=== PATIENT | female | born 2000 | race African-American/Black ===

== ENCOUNTER 2023-08-31 10:47 | Inpatient (IN) ==
[2023-08-31] MEDS: LR 1,000 ML IV 1,000 ML IV SCH (11:00)
[2023-08-31] MEDS ORDERED: ZOFRAN INJ 4 MG VIAL IVP PRN (11:26)
[2023-08-31] MEDS ORDERED: NUBAIN INJ 20 MG AMP IVP PRN (11:26)
[2023-08-31] MEDS ORDERED: OXYTOCIN 20 UNIT/1,000 ML-NS 20 UNIT/1,000 ML PLAST..BAG IV PRN (11:26)
[2023-08-31] MEDS ORDERED: PITOCIN IVP ONE (11:26)
[2023-08-31] MEDS ORDERED: REGLAN INJ 10 MG VIAL IVP PRN (11:26)
[2023-08-31] MEDS: LR 1,000 ML IV 1,000 ML IV ONE ×3 (11:30→17:39)
[2023-08-31 12:00] LABS: BILIRUBIN,URINE NEGATIVE (NEGATIVE); BLOOD/HEMOGLOBIN,URINE 5+ (NEGATIVE); GLUCOSE, URINE NEGATIVE (NEGATIVE); KETONES,URINE NEGATIVE (NEGATIVE); LEUKOCYTE ESTERASE ,URINE 3+ (NEGATIVE); NITRITES,URINE NEGATIVE (NEGATIVE); PROTEIN,URINE 3+ (NEGATIVE); UROBILINOGEN,URINE 1+ (NORMAL)
[2023-08-31 12:02] LABS: APPEARANCE,URINE CLOUDY (CLEAR); COLOR,URINE BLOODY (YELLOW)
[2023-08-31 12:07] LABS: RBC,URINE TNTC /HPF (0-3); SQUAMOUS EPITHELIAL CELL,UR RARE /HPF (NEGATIVE)
[2023-08-31 12:08] LABS: BACTERIA,URINE TRACE /HPF (NEGATIVE)
[2023-08-31 12:16] LABS: BLOOD UREA NITROGEN 4 mg/dL (7-18); CALCIUM 8.6 mg/dL (8.5-10.1); CARBON DIOXIDE 23.2 mmol/L (21-32); CHLORIDE 103 mmol/L (98-107); CREATININE 0.57 mg/dL (0.55-1.02); GLUCOSE 85 mg/dL (65-99); POTASSIUM 3.5 mmol/L (3.5-5.1); SODIUM 137 mmol/L (136-145); eGFR NON BLACK RACES > 60 (>60)
[2023-08-31] MEDS: EPHEDRINE SULFATE INJ ONE (12:20)
[2023-08-31 12:24] LABS: LYMPHOCYTES # (AUTO) 2.5 X10^3/uL (1.3-2.9); RED CELL DISTRIBUTION WIDTH 17.7 % (11.6-16.5)
[2023-08-31 12:30] LABS: BASOPHILS # (AUTO) 0.1 X10^3/uL (0.0-0.1); BASOPHILS % (AUTO) 0.6 % (0.2-1.0); EOSINOPHILS # (AUTO) 0.3 x10^3/uL (0.0-0.2); HEMATOCRIT 30.6 % (36.0-47.0); HEMOGLOBIN 9.3 g/dL (12.0-16.0); LYMPHOCYTES % (AUTO) 19.4 % (21.0-51.0); MEAN CORPUSCULAR HEMOGLOBIN 19.9 pg (27.0-34.0); MEAN CORPUSCULAR HGB CONC 30.4 g/dL (33.0-35.0); MEAN CORPUSCULAR VOLUME 65.6 fL (80.0-100.0); MEAN PLATELET VOLUME 8.1 fL (7.4-11.0); MONOCYTES # (AUTO) 1.1 x10^3/uL (0.3-0.8); MONOCYTES % (AUTO) 8.5 % (0.0-13.0); NEUTROPHILS # (AUTO) 8.9 x10^3/uL (2.2-4.8); NEUTROPHILS % (AUTO) 69.5 % (42.0-75.0); PLATELET COUNT 308 X10^3/uL (150.0-450.0); RED BLOOD COUNT 4.67 X10^6/uL (3.5-5.4); WHITE BLOOD COUNT 12.9 X10^3/uL (3.6-10.0)
[2023-08-31] MEDS: NS 100 ML IV 100 ML ONE (12:30)
[2023-08-31] MEDS ORDERED: AMPICILLIN VIAL 2 GRAM IV ONE (12:30)
[2023-08-31] MEDS: AMPICILLIN VIAL 2 GRAM ONE (12:30)
[2023-08-31] MEDS: NAROPIN EPIDURAL 0.2% 100 ML EPI ONE (12:58)
[2023-08-31] MEDS: FENTANYL VIAL INJ 100 mcg ONE (12:58)
[2023-08-31 13:04] LABS: ANISOCYTOSIS SLIGHT; HYPOCHROMASIA 3+; MICROCYTOSIS 1+; PLATELET MORPHOLOGY COMMENT NORMAL (NORMAL); POIKILOCYTOSIS SLIGHT
--- NOTE | 2023-08-31 14:25 | US ---
EXAM: age comparison 14+ weeksHISTORY:VAGINAL BLEEDING 37 WEEKS GESTATION;COMPARISON:None.TECHNIQUE:Limi fabiola obstetric ultrasound focused on growth and positioning. Detailed anatomic review not performed.FINDINGS:Single live IUP is demonstrated with cephalic position. heart rate is 142 beats per minute. Placenta location is anterior. FOREST is 9.9 cmBPD 9.2 cm 37 weeks 2 daysHead circumference 32 cm 36 weeks 3 daysAbdominal circumference 33 cm 36 weeks 4 daysFemur length 7 cm 37 weeks 3 daysEstimated weight 3055 g which is the 47th percentile. Based on the collective biometric measurements, the fetus measures 37 weeks 0 days with an SHANNON of 09/21/2023.IMPRESSION:Single live IUP measuring 37 weeks 0 days. No acute abnormalities identified. Growth parameters are detailed above.THIS IS AN ELECTRONICALLY VERIFIED FINAL REPORT08/31/2023 2:16 PM - Electronically signed by Laurent Chou MD
[2023-08-31] MEDS: NAROPIN EPIDURAL 0.2% 100 ML ONE (14:29)
[2023-08-31] MEDS ORDERED: MOTRIN TAB 800 MG PO PRN (16:01)
[2023-08-31] MEDS ORDERED: OXYTOCIN 20 UNIT/1,000 ML-NS 20 UNIT/1,000 ML PLAST..BAG IV SCH (16:15)
[2023-08-31] MEDS ORDERED: AMPICILLIN VIAL 1 GRAM 1 G in NS 100 ML IV 100 ML IV SCH (16:30)
[2023-08-31] MEDS ORDERED: DERMOPLAST PAIN RELIEF SPRAY TOP PRN (16:57)
[2023-08-31] MEDS ORDERED: MILK OF MAGNESIA PO PRN (16:57)
[2023-08-31] MEDS ORDERED: AMBIEN PO PRN (16:57)
[2023-08-31] MEDS: PITOCIN ONE (17:39)
[2023-08-31] MEDS: BETADINE SOLN ONE (17:40)
[2023-08-31] MEDS: ADACEL or BOOSTRIX TDaP VACCINE IM ONE (17:47)
[2023-09-01] MEDS: MOTRIN TAB 800 MG PO PRN (01:55)
[2023-09-01 05:33] LABS: HEMATOCRIT 23.9 % (36.0-47.0)
[2023-09-01 05:34] LABS: HEMOGLOBIN 7.3 g/dL (12.0-16.0)
[2023-09-01] MEDS: PRENATAL PLUS PO SCH (09:49)
[2023-09-01] MEDS: NS 250 ML IV 250 ML IV ONE (11:40)
[2023-09-01] MEDS: INFeD or DEXFERRUM 25 MG in NS 100 ML IV 100 ML IV ONE (11:40)
[2023-09-01] MEDS: INFeD or DEXFERRUM 975 MG in NS 500 ML IV 500 ML IV ONE (13:53)
[2023-09-01 18:08] VITALS: PULSE 103
[2023-09-01 22:18] VITALS: BP 120/60; RESP 19; TEMP 98.5; O2SAT 99
== END 2023-09-01 21:20 | disposition home or self-care (01) | DRG 807 ==
LOC: ER 10:47 → LD 11:17 → MED/SURG 17:01
PROVIDERS: ADMIT Obstetrics & Gynecology Obstetrics; ATTEND Obstetrics & Gynecology Obstetrics
DX: O45.8X3 Other premature separation of placenta, third trimester; Z3A.37 37 weeks gestation of pregnancy; Z37.0 Single live birth